=== PATIENT | female | born 2000 | race Caucasian/White ===

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

== ENCOUNTER 2022-04-05 13:40 | Emergency (ER) | payer OTHER ==
[~2022-04-05] VITALS: Ht 157.5 cm; Wt 61.3 kg
[~2022-04-05 13:40] MED LIST changes: +HYDR-3363 PO; +OMEP-173 PO; -OMEP-218 PO; +ONDA4TAB6 PO
[2022-04-05] MEDS ORDERED: KETOROLAC 30 MG/ML 1ML VIAL IV ONE (16:20)
[2022-04-05] MEDS ORDERED: methocarbamoL 750 MG TAB PO ONE (16:20)
[2022-04-05] MEDS ORDERED: LIDOCAINE 5% (LIDODERM) PATCH TD ONE (16:20)
[2022-04-05] MEDS ORDERED: NS 1,000 ML IV ONE (16:20)
[2022-04-05 17:03] LABS: BASO # 0.1 10^3/uL (0.0-0.2); EOS # 0.1 10^3/uL (0.0-0.5); EOS % 1.2 % (0.0-3.0); LYMPH # 3.1 10^3/uL (1.5-5.0); MEAN CORPUSCULAR HEMOGLOBIN 26.4 pg (27.0-33.0); MEAN CORPUSCULAR HGB CONC 31.8 g/dl (32.0-36.5); MEAN CORPUSCULAR VOLUME 82.9 fl (80.0-96.0); MONO # 0.7 10^3/uL (0.0-0.8); MONO % 6.9 % (2.0-8.0); NEUTROPHILS # 6.2 10^3/uL (1.5-8.5); NEUTROPHILS % 60.6 % (36.0-66.0); PLATELET COUNT, AUTOMATED 298 10^3/uL (150-450); RED BLOOD COUNT 5.31 10^6/uL (4.00-5.40); WHITE BLOOD COUNT 10.2 10^3/uL (4.0-10.0)
[2022-04-05 17:17] LABS: ALBUMIN 3.9 G/DL (3.2-5.2); ALKALINE PHOSPHATASE 71 U/L (46-116); ALT/SGPT 9 U/L (7.0-40); AST/SGOT 18 U/L (<34); BILIRUBIN,DIRECT < 0.1 MG/DL (<0.4); BILIRUBIN,TOTAL 0.3 MG/DL (0.3-1.2); TOTAL PROTEIN 6.9 G/DL (5.7-8.2)
[2022-04-05 17:40] LABS: ERYTHROCYTE SEDIMENTATION RATE 15 mm/hr (0-20)
[2022-04-05] MEDS ORDERED: ASPE4PAD TOP (18:45)
[2022-04-05 19:01] VITALS: BP 127/60
== END 2022-04-05 19:03 | disposition home or self-care (01) ==
LOC: M ED 13:40
DX: N20.0 Calculus of kidney (principal); K21.9 Gastro-esophageal reflux disease without esophagitis; F41.9 Anxiety disorder, unspecified; F32.A Depression, unspecified; Z87.442 Personal history of urinary calculi; Z79.899 Other long term (current) drug therapy
CPT/HCPCS: 74176; 80047; 80076; 81001; 84702; 85025; 85652; 87086; 96361; 96374; 99284; J1885

== ENCOUNTER → 2022-04-12 | Outpatient (CLI) | payer OTHER ==
[~2022-04-12] MED LIST changes: +ASPE4PAD TOP; +IBUP-1022 PO; +KETO10TAB PO; +OXYB5TAB10 PO
== END ==
LOC: M LABSMTC 09:06
PROVIDERS: ATTEND Anesthesiology
DX: Z01.812 Encounter for preprocedural laboratory examination (principal); Z20.822 Contact with and (suspected) exposure to COVID-19

== ENCOUNTER → 2022-04-12 | Outpatient (REF) | payer OTHER ==
[2022-04-12 13:26] LABS: HEMATOCRIT 42.8 % (36.0-47.0); HEMOGLOBIN 13.9 g/dl (12.0-15.5); MEAN CORPUSCULAR HEMOGLOBIN 27.2 pg (27.0-33.0); MEAN CORPUSCULAR HGB CONC 32.5 g/dl (32.0-36.5); MEAN CORPUSCULAR VOLUME 83.8 fl (80.0-96.0); PLATELET COUNT, AUTOMATED 291 10^3/uL (150-450); RED BLOOD COUNT 5.11 10^6/uL (4.00-5.40); WHITE BLOOD COUNT 7.2 10^3/uL (4.0-10.0)
[2022-04-12 13:29] LABS: BLOOD UREA NITROGEN 17 MG/DL (9-23); CALCIUM LEVEL 10.1 MG/DL (8.5-10.1); CARBON DIOXIDE LEVEL 28 MMOL/L (20-31); CHLORIDE LEVEL 105 MMOL/L (98-107); CREATININE FOR GFR 0.73 MG/DL (0.55-1.30); GLOMERULAR FILTRATION RATE > 60.0 (>60); GLUCOSE, FASTING 90 MG/DL (60-100); POTASSIUM SERUM 4.7 MMOL/L (3.5-5.1); SODIUM LEVEL 139 MMOL/L (136-145)
[2022-04-12 13:42] LABS: AMORPHOUS SEDIMENT SMALL (NEGATIVE); APPEARANCE, URINE CLOUDY (CLEAR); BACTERIA, URINE AUTO NEGATIVE (NEGATIVE); BILIRUBIN, URINE AUTO NEGATIVE (NEGATIVE); BLOOD, URINE BLOOD 2+ (NEGATIVE); COLOR, URINE YELLOW (YELLOW); GLUCOSE, URINE (UA) AUTO NEGATIVE (NEGATIVE); KETONE, URINE AUTO NEGATIVE (NEGATIVE); LEUKOCYTE ESTERASE, URINE AUTO 1+ (NEGATIVE); MUCUS, URINE SMALL (NEGATIVE); NITRITE, URINE AUTO NEGATIVE (NEGATIVE); PROTEIN, URINE AUTO 2+ mg/dL (NEGATIVE); RBC, URINE AUTO 69 /HPF (0-3); SPECIFIC GRAVITY URINE AUTO 1.024 (1.002-1.035); SQUAMOUS EPITHELIAL CELL UR AU 3 /HPF (0-6); UROBILINOGEN, URINE AUTO 0.2 mg/dL (0.0-2.0); WBC, URINE AUTO 18 /HPF (0-3)
[2022-04-12 13:54] LABS: HCG, SERUM QUALITATIVE NEGATIVE (NEGATIVE)
[2022-04-12 16:28] LABS: INR 0.91; PROTHROMBIN TIME 12.5 SECONDS (12.5-14.5)
[2022-04-12 16:29] LABS: PARTIAL THROMBOPLASTIN TIME 33.8 SECONDS (24.8-34.2)
== END ==
LOC: M SFHCADAM 09:30
PROVIDERS: ATTEND Nurse Practitioner Women's Health
DX: Z01.818 Encounter for other preprocedural examination (principal); N20.0 Calculus of kidney

== ENCOUNTER 2022-04-13 10:15 | Day surgery (SDC) | payer OTHER ==
[~2022-04-13] VITALS: Ht 157.5 cm; Wt 62.5 kg
[~2022-04-13 10:15] MED LIST changes: +MIDAZOLAM INJ 2MG/2ML VIAL As Ordered ONE; -OXYB5TAB10 PO; +ceFAZolin SOD 2 GM in IV 1 EA IV ONE; +fentaNYL 100 MCG/2 ML INJECTION As Ordered ONE
[2022-04-13] MEDS ORDERED: LR 1,000 ML IV SCH ×2 (10:45→13:30)
[2022-04-13] MEDS ORDERED: LIDOCAINE 1% SDV 5ML VIAL SC PRN (10:45)
[2022-04-13] MEDS ORDERED: ONDANSETRON 4MG 2ML VIAL As Ordered ONE (10:55)
[2022-04-13] MEDS ORDERED: propofoL 200 MG/20 ML VIAL As Ordered ONE (10:55)
[2022-04-13] MEDS ORDERED: LIDOCAINE 2% 100MG/5ML SDV (FOR ANES.) As Ordered ONE (10:55)
[2022-04-13] MEDS ORDERED: ISOVUE-300 61% 100ML VIAL As Ordered ONE (11:56)
[2022-04-13] MEDS ORDERED: fentaNYL 100 MCG/2 ML INJECTION As Ordered ONE (13:13)
[2022-04-13] MEDS ORDERED: ONDANSETRON 4MG 2ML VIAL IV PRN (13:30)
[2022-04-13] MEDS ORDERED: fentaNYL 100 MCG/2 ML INJECTION IV PRN (13:30)
[2022-04-13] MEDS ORDERED: FLOM0.4C39 PO (13:42)
[2022-04-13] MEDS: oxyCODONE 5MG TAB PO PRN ×2 (13:55→14:45)
[2022-04-13] MEDS ORDERED: PERCOCET 5MG/325MG TAB PO PRN (14:00)
[2022-04-13] MEDS ORDERED: oxyBUTYnin 5 MG TAB PO PRN (15:10)
[2022-04-13 15:34] VITALS: BP 126/78
[2022-04-13] MEDS ORDERED: OXYB5TAB10 PO (15:37)
[2022-04-19 15:08] LABS: CA Oxalate Dihy 90 % (.); Size 3x5 mm (.)
== END 2022-04-13 15:40 | disposition home or self-care (01) ==
LOC: M SDC 10:15
PROVIDERS: ATTEND Urology
DX: N20.0 Calculus of kidney (principal)
CPT/HCPCS: 52356; 76000; 81025; 82365; C1769; C1894; C2617; J0690; J1100; J2250; J2405; J3010; Q9967

== ENCOUNTER 2022-08-28 14:12 | Emergency (ER) | payer OTHER, SELFPAY ==
[~2022-08-28] VITALS: Ht 160 cm; Wt 69.2 kg
[~2022-08-28 14:12] MED LIST changes: -MIDAZOLAM INJ 2MG/2ML VIAL As Ordered ONE; +OXYB5TAB10 PO; -ceFAZolin SOD 2 GM in IV 1 EA IV ONE; -fentaNYL 100 MCG/2 ML INJECTION As Ordered ONE
[2022-08-28] MEDS ORDERED: TAMS1CAP17 (14:54)
[2022-08-28 14:57] LABS: BASO # 0.1 10^3/uL (0.0-0.2); BASO % 0.6 % (0.0-1.0); EOS # 0.1 10^3/uL (0.0-0.5); EOS % 0.9 % (0.0-3.0); HEMATOCRIT 43.1 % (36.0-47.0); HEMOGLOBIN 14.2 g/dl (12.0-15.5); LYMPH # 3.3 10^3/uL (1.5-5.0); LYMPH % 20.7 % (24.0-44.0); MEAN CORPUSCULAR HEMOGLOBIN 26.2 pg (27.0-33.0); MEAN CORPUSCULAR HGB CONC 32.9 g/dl (32.0-36.5); MEAN CORPUSCULAR VOLUME 79.5 fl (80.0-96.0); MONO # 1.1 10^3/uL (0.0-0.8); MONO % 6.6 % (2.0-8.0); NEUTROPHILS # 11.3 10^3/uL (1.5-8.5); NEUTROPHILS % 70.9 % (36.0-66.0); PLATELET COUNT, AUTOMATED 370 10^3/uL (150-450); RED BLOOD COUNT 5.42 10^6/uL (4.00-5.40)
[2022-08-28 15:21] LABS: BLOOD UREA NITROGEN 11 MG/DL (9-23); CALCIUM LEVEL 9.3 MG/DL (8.5-10.1); CARBON DIOXIDE LEVEL 22 MMOL/L (20-31); CHLORIDE LEVEL 105 MMOL/L (98-107); CREATININE FOR GFR 0.85 MG/DL (0.55-1.30); GLOMERULAR FILTRATION RATE > 60.0 (>60); GLUCOSE, FASTING 112 MG/DL (60-100); POTASSIUM SERUM 3.8 MMOL/L (3.5-5.1); SODIUM LEVEL 140 MMOL/L (136-145)
[2022-08-28] MEDS ORDERED: KETOROLAC 30 MG/ML 1ML VIAL IV ONE (15:25)
[2022-08-28] MEDS ORDERED: NS 1,000 ML IV ONE (15:25)
[2022-08-28] MEDS ORDERED: cefTRIAXone SOD 1 GM in D5W MINI-BAG PLUS 50 ML IV ONE (15:25)
[2022-08-28] MEDS ORDERED: ONDANSETRON 4MG 2ML VIAL IV ONE (15:25)
[2022-08-28 15:48] LABS: ALKALINE PHOSPHATASE 88 U/L (46-116); ALT/SGPT 10 U/L (7.0-40); AST/SGOT 8 U/L (<34); BILIRUBIN,DIRECT 0.2 MG/DL (<0.4); BILIRUBIN,TOTAL 0.6 MG/DL (0.3-1.2)
[2022-08-28] MEDS ORDERED: HYDR-3713 PO (17:48)
[2022-08-28] MEDS ORDERED: IBUP80TA PO (17:48)
[2022-08-28] MEDS ORDERED: ONDA4TAB6 PO (17:48)
[2022-08-28] MEDS ORDERED: NORCO 5/325MG TABLET (HOME DOSE PACK) PO ONE (17:50)
[2022-08-28 17:54] VITALS: BP 141/86; TEMP 98.7; O2SAT 100
== END 2022-08-28 18:07 | disposition home or self-care (01) ==
LOC: M ED 14:12
DX: N20.1 Calculus of ureter (principal); N13.30 Unspecified hydronephrosis; F41.9 Anxiety disorder, unspecified; Z87.442 Personal history of urinary calculi; Z79.1 Long term (current) use of non-steroidal anti-inflammatories (NSAID); Z79.83 Long term (current) use of bisphosphonates; Z79.899 Other long term (current) drug therapy
CPT/HCPCS: 74176; 80048; 80076; 81001; 84702; 85025; 87088; 87186; 99284; J0696; J1885; J2405

== ENCOUNTER → 2022-09-16 | Outpatient (CLI) | payer OTHER ==
[~2022-09-16] MED LIST changes: +HYDR-3713 PO; +IBUP80TA PO; +NITR1CAP11 PO; +TAMS1CAP17 PO
== END ==
LOC: M EKG 12:56
PROVIDERS: ATTEND Physician Assistant
DX: Z01.818 Encounter for other preprocedural examination (principal)

== ENCOUNTER 2022-09-23 10:48 | Day surgery (SDC) | payer OTHER ==
[~2022-09-23] VITALS: Ht 160 cm; Wt 68.9 kg
[~2022-09-23 10:48] MED LIST changes: +ceFAZolin SOD 2 GM in IV 1 EA IV ONE
[2022-09-23] MEDS ORDERED: LR 1,000 ML IV SCH ×2 (11:25→15:30)
[2022-09-23] MEDS ORDERED: fentaNYL 100 MCG/2 ML INJECTION As Ordered ONE ×2 (13:24→15:11)
[2022-09-23] MEDS ORDERED: LIDOCAINE 2% 100MG/5ML SDV (FOR ANES.) As Ordered ONE (13:24)
[2022-09-23] MEDS ORDERED: MIDAZOLAM INJ 2MG/2ML VIAL As Ordered ONE (13:24)
[2022-09-23] MEDS ORDERED: ONDANSETRON 4MG 2ML VIAL As Ordered ONE (13:24)
[2022-09-23] MEDS ORDERED: propofoL 200 MG/20 ML VIAL As Ordered ONE ×2 (13:24→15:10)
[2022-09-23] MEDS ORDERED: KETOROLAC 60MG 2ML VIAL As Ordered ONE (13:26)
[2022-09-23] MEDS ORDERED: SCOPOLAMINE 1MG TRANSDERMAL PATCH As Ordered ONE (14:07)
[2022-09-23] MEDS ORDERED: ACETAMINOPHEN 1000MG 100ML IV BAG As Ordered ONE (14:40)
[2022-09-23] MEDS ORDERED: ONDANSETRON 4MG 2ML VIAL IV PRN (15:30)
[2022-09-23] MEDS ORDERED: METOCLOPRAMIDE INJ 10MG/2ML VIAL IV PRN (15:30)
[2022-09-23] MEDS ORDERED: HYDROMORPHONE HCL 0.5 MG/ 0.5 ML SYRINGE IV PRN (15:30)
[2022-09-23] MEDS ORDERED: fentaNYL 100 MCG/2 ML INJECTION IV PRN (15:30)
[2022-09-23] MEDS ORDERED: oxyCODONE 5MG TAB PO PRN (15:30)
[2022-09-23] MEDS ORDERED: FLOM0.4C39 PO (16:07)
[2022-09-23] MEDS ORDERED: OXYB5TAB10 PO (16:07)
[2022-09-23 16:31] VITALS: BP 115/65; TEMP 97.3; O2SAT 99
[2022-09-23] MEDS ORDERED: oxyBUTYnin 5 MG TAB PO PRN (17:30)
[2022-09-23] MEDS ORDERED: PERCOCET 5MG/325MG TAB PO PRN (17:30)
== END 2022-09-23 16:37 | disposition home or self-care (01) ==
LOC: M SDC 10:48
PROVIDERS: ATTEND Urology
DX: N20.2 Calculus of kidney with calculus of ureter (principal); F41.9 Anxiety disorder, unspecified; F32.A Depression, unspecified
CPT/HCPCS: 52356; 76000; 81025; 82365; C1769; C1894; C2617; J0131; J0690; J1100; J1885; J2250; J2405; J3010

== ENCOUNTER → 2022-11-25 | Outpatient (CLI) | payer MEDICAID, OTHER ==
[~2022-11-25] MED LIST changes: -OXYB5TAB10 PO; +OXYB5TAB11 PO; -ceFAZolin SOD 2 GM in IV 1 EA IV ONE
== END ==
LOC: M PLALAB 10:43
PROVIDERS: ATTEND Advanced Practice Midwife
DX: O03.9 Complete or unspecified spontaneous abortion without complication (principal)

== ENCOUNTER → 2023-03-03 | Outpatient (CLI) | payer OTHER ==
[2023-03-03 13:06] LABS: HEMATOCRIT 41.2 % (36.0-47.0); HEMOGLOBIN 13.7 g/dl (12.0-15.5); MEAN CORPUSCULAR HEMOGLOBIN 26.6 pg (27.0-33.0); MEAN CORPUSCULAR HGB CONC 33.3 g/dl (32.0-36.5); MEAN CORPUSCULAR VOLUME 79.8 fl (80.0-96.0); PLATELET COUNT, AUTOMATED 312 10^3/uL (150-450); RED BLOOD COUNT 5.16 10^6/uL (4.00-5.40); WHITE BLOOD COUNT 9.6 10^3/uL (4.0-10.0)
[2023-03-03 13:36] LABS: HIV 1&2 SCREEN NEGATIVE (NEGATIVE)
[2023-03-03 13:46] LABS: HEPATITIS C VIRUS ABY INDEX < 0.02 INDEX (<0.8)
== END ==
LOC: M PLALAB 11:00
PROVIDERS: ATTEND Advanced Practice Midwife
DX: Z34.81 Encounter for supervision of other normal pregnancy, first trimester (principal)

== ENCOUNTER → 2023-05-01 | Outpatient (CLI) | payer OTHER ==
[~2023-05-01] MED LIST changes: -OXYB5TAB11 PO; +OXYB5TAB14 PO
== END ==
LOC: M WHC 13:16
PROVIDERS: ATTEND Obstetrics & Gynecology
DX: Z34.92 Encounter for supervision of normal pregnancy, unspecified, second trimester (principal); Z3A.18 18 weeks gestation of pregnancy

== ENCOUNTER → 2023-06-30 | Outpatient (CLI) | payer OTHER ==
[2023-06-30 13:59] LABS: HEMATOCRIT 36.3 % (36.0-47.0); HEMOGLOBIN 11.4 g/dl (12.0-15.5); MEAN CORPUSCULAR HEMOGLOBIN 24.8 pg (27.0-33.0); MEAN CORPUSCULAR HGB CONC 31.4 g/dl (32.0-36.5); MEAN CORPUSCULAR VOLUME 78.9 fl (80.0-96.0); PLATELET COUNT, AUTOMATED 340 10^3/uL (150-450)
[2023-06-30 14:28] LABS: GC DNA AMPLIFICATION NEGATIVE (NEGATIVE)
== END ==
LOC: M PLALAB 10:32
PROVIDERS: ATTEND Obstetrics & Gynecology
DX: Z34.92 Encounter for supervision of normal pregnancy, unspecified, second trimester (principal)

== ENCOUNTER 2023-08-04 19:51 | Outpatient (CLI) | payer OTHER ==
[~2023-08-04] VITALS: Ht 157.5 cm; Wt 88.8 kg
[~2023-08-04 19:51] MED LIST changes: +NITR100C3 PO; -NITR1CAP11 PO; +ONDA-282 PO; -ONDA4TAB6 PO
[2023-08-04] MEDS: FLUCONAZOLE 50MG TABLET PO ONE (22:52)
== END 2023-08-04 22:55 | disposition home or self-care (01) ==
LOC: M LDO 19:51
PROVIDERS: ATTEND Advanced Practice Midwife
DX: O23.593 Infection of other part of genital tract in pregnancy, third trimester (principal); B37.9 Candidiasis, unspecified; Z3A.32 32 weeks gestation of pregnancy
CPT/HCPCS: 59025; 81001; G0463

== ENCOUNTER 2023-08-06 09:07 | Outpatient (CLI) | payer OTHER ==
[~2023-08-06] VITALS: Ht 157.5 cm; Wt 88.2 kg
[2023-08-06] MEDS ORDERED: MULTTAB20 PO (09:30)
[2023-08-06] MEDS ORDERED: OMEP10CASR PO (09:30)
[2023-08-06 09:33] VITALS: BP 127/75
[2023-08-06] MEDS ORDERED: HOME MED LIST COMPLETE! XX SCH (09:40)
== END 2023-08-06 12:15 | disposition home or self-care (01) ==
LOC: M LDO 09:07
PROVIDERS: ATTEND Obstetrics & Gynecology
DX: O47.03 False labor before 37 completed weeks of gestation, third trimester (principal); Z3A.32 32 weeks gestation of pregnancy
CPT/HCPCS: 59025; 81001; G0463

== ENCOUNTER 2023-08-17 17:26 | Outpatient (CLI) | payer OTHER ==
[~2023-08-17] VITALS: Ht 157.5 cm; Wt 90.7 kg
[~2023-08-17 17:26] MED LIST changes: +MULTTAB20 PO; +OMEP10CASR PO
[2023-08-17] MEDS ORDERED: HOME MED LIST COMPLETE! XX SCH (17:45)
[2023-08-17 17:48] VITALS: BP 130/81
== END 2023-08-17 18:40 | disposition home or self-care (01) ==
LOC: M LDO 17:26
PROVIDERS: ATTEND Obstetrics & Gynecology
DX: O26.893 Other specified pregnancy related conditions, third trimester (principal); N89.8 Other specified noninflammatory disorders of vagina; Z3A.34 34 weeks gestation of pregnancy
CPT/HCPCS: 59025; 76815; G0463

== ENCOUNTER → 2023-08-29 | Outpatient (REF) | payer OTHER | LOC: M PLALAB 11:00 | PROVIDERS: ATTEND Advanced Practice Midwife | DX: Z34.83 Encounter for supervision of other normal pregnancy, third trimester (principal); Z36.85 Encounter for antenatal screening for Streptococcus B ==

== ENCOUNTER → 2024-08-23 | Outpatient (CLI) | payer OTHER ==
[~2024-08-23] MED LIST changes: -FLOM0.4C39 PO; +TAMS-18 PO
[2024-08-23 15:49] LABS: FREE T4 1.25 NG/DL (0.89-1.76)
[2024-08-23 15:55] LABS: THYROID PEROXIDASE ANTIBODY < 28.0 U/ML (<60.0)
== END ==
LOC: M PLALAB 09:40
PROVIDERS: ATTEND Student in an Organized Health Care Education/Training Program
DX: R79.89 Other specified abnormal findings of blood chemistry (principal)